=== PATIENT | male | born 1940 | race Caucasian/White ===

== ENCOUNTER 2021-11-07 09:21 | Day surgery (SDC) | payer MEDICARE, OTHER ==
[~2021-11-07] VITALS: Ht 180 cm; Wt 114.0 kg
[~2021-11-07 09:21] MED LIST: ALLOPURINOL300 MG PO; AMARYL 2MG TABLE2 MG PO; LASIX20 MG PO; LUMIGAN OU; METFORMIN HCL500 MG PO; MOBIC7.5 MG PO; OXYCODONE-ACET1 EAC1 PO; PRINIVIL20 MG PO; UROCIT-K10 MEQ PO; XALATAN2.5 ML OU; XARELTO10 MG PO
[2021-11-07 10:42] LABS: BUN/CREAT RATIO (CALC) 16.4 RATIO; CREATININE 1.28 mg/dL (0.67-1.17); POTASSIUM 4.2 mmol/L (3.5-5.1)
[2021-11-08 07:25] LABS: BASOPHIL 0.2 % (0-2); EOSINOPHIL 0 % (0-7); HCT 32.3 % (42.0-52.0); HGB 10.6 g/dl (13.2-18.0); LYMPHOCYTE 8.4 % (15-48); MCH 32.5 pg (25.0-31.0); MCHC 32.8 g/dL (32.0-36.0); MCV 99.1 fL (78.0-100.0); MPV 9.4 fL (6.0-9.5); NEUTROPHIL 83.5 % (41-80); NRBC 0; PLT 252 K/uL (150-400); RBC 3.26 M/uL (4.70-6.00); RDW 14.1 % (11.5-14.0); WBC 11.3 K/uL (4.0-10.5)
[2021-11-08 07:39] LABS: BUN/CREAT RATIO (CALC) 14.8 RATIO; CREATININE 1.55 mg/dL (0.67-1.17); POTASSIUM 4.8 mmol/L (3.5-5.1)
[2021-11-08] MEDS ORDERED: FEOSOL325 MG PO (08:51)
[2021-11-08] MEDS ORDERED: OXYCODONE-ACET1 EAC1 PO (08:51)
[2021-11-08] MEDS ORDERED: XARELTO10 MG PO (08:51)
--- NOTE | 2021-11-08 10:25 | NUR ---
PT. TO D/C HOME WIHT SPOUSE THIS DATE. PT. HAS A RW AND REQUESTED [facility]. PT. SIGNED CHOICE FORM AND COPY GIVEN.
== END 2021-11-08 12:51 | disposition home or self-care (01) ==
LOC: FAS 09:21 → FOFB 12:06 → FAS 11-08 12:51
PROVIDERS: Legal Medicine
DX: M17.12 Unilateral primary osteoarthritis, left knee (principal); G89.18 Other acute postprocedural pain; I10 Essential (primary) hypertension; E11.9 Type 2 diabetes mellitus without complications; M25.552 Pain in left hip; M25.551 Pain in right hip; R06.09 Other forms of dyspnea; Z88.0 Allergy status to penicillin; Z79.1 Long term (current) use of non-steroidal anti-inflammatories (NSAID); Z20.822 Contact with and (suspected) exposure to COVID-19; Z79.01 Long term (current) use of anticoagulants; Z79.84 Long term (current) use of oral hypoglycemic drugs; Z79.899 Other long term (current) drug therapy
CPT/HCPCS: 36415; 73560; 80048; 85025; 86850; 86900; 86901; 94010; 97162; 97166; 97530-GP; 97535; C1713; C1776; J0171; J1100; J1885; J2250; J2270; J2405; J2704; J2795; J3010; J7120